=== PATIENT | female | born 1960 | race Caucasian/White ===

== ENCOUNTER 2019-10-18 13:49 | Outpatient (CLI) | payer OTHER, SELFPAY ==
--- NOTE | 2019-10-18 | XR_ITS ---
WS: [id number] LEFT FOREARM 2 VIEWS HISTORY: PAIN AND SWELLING OF THE LEFT FOREARM COMPARISON: None available. No fracture or dislocation. No foreign body or joint effusion. XR/XR forearm LT 2V [id number] IMPRESSION: Normal LEFT forearm.
== END 2019-10-18 13:50 | disposition home or self-care (01) ==
LOC: RADOUTREAD 13:59
PROVIDERS: Visit Provider Nurse Practitioner Family
DX: M79.632 Pain in left forearm (principal); M79.89 Other specified soft tissue disorders

== ENCOUNTER 2020-09-03 09:04 | Outpatient (CLI) | payer OTHER, SELFPAY ==
--- NOTE | 2020-09-03 09:53 | CT_ITS ---
WS: [id number] CT scan of the abdomen with IV contrast. Additional two-dimensional coronal and sagittal reconstruct ion was performed. 09/03/2020 Clinical Data: ABDOMINAL PAIN, EPIGASTRIC Comparison: None. DLP: 802.[address] scans at [facility] use at least one of these dose optimization techniques: automat ed exposure control; mA and/or kV adjustment per patient size (includes targeted exams where dose is matched to clinical indication); or iterative reconstruction. Findings: The lower lungs show no nodules, masses or effusions. There is a large hiatal hernia. There is an enh ancing lesion in the right lobe of the liver measuring 2.5 cm which has the appearance of an hemangio ma. There is fatty infiltration of the liver. The gallbladder, spleen, adrenal glands and pancreas ar e normal. The kidneys show equal bilateral contrast excretion with small cortical cysts bilaterally. No renal m asses or hydronephrosis are seen. The abdominal aorta is normal in size. No appendicitis is seen. Oral contrast is in the stomach, small bowel and colon and there is no bola l dilatation. No abscess, adenopathy, ascites, mass, obstruction or free air is seen. The lumbar vertebral bodies show no abnormalities. CT/CT abdomen w con* [id number] Impression: 1. Large hiatal hernia. 2. Enhancing lesion in the midportion of the right lobe of the liver which is p robably an hemangioma. 3. Fatty infiltration of liver and small cortical renal cysts. 4. Negative for acute intra-abdominal abnormalities.
[2020-09-03] MEDS: iohexol 300 mg/mL 50 mL Btl PO (09:54)
[2020-09-03 10:42] LABS: Blood Urea Nitrogen 14 mg/dL (8-23); Glomerular Filtration Rate 85.1 mL/min (90-130)
[2020-09-03] MEDS: iohexol 300 mg/mL 100 mL Btl IV (10:50)
== END 2020-09-03 09:05 | disposition home or self-care (01) ==
LOC: RADWPI 09:11
PROVIDERS: PCP Nurse Practitioner Family; Visit Provider Nurse Practitioner Family
DX: K44.9 Diaphragmatic hernia without obstruction or gangrene (principal); K76.9 Liver disease, unspecified; K76.0 Fatty (change of) liver, not elsewhere classified; N28.1 Cyst of kidney, acquired; R10.13 Epigastric pain
CPT/HCPCS: 74160; 82565; 84520; Q9967

== ENCOUNTER 2021-01-14 11:38 | Outpatient (CLI) | payer OTHER, SELFPAY ==
--- NOTE | 2021-01-14 11:56 | XR_ITS ---
WS: [id number] PELVIS AND RIGHT HIP HISTORY: R HIP PAIN COMPARISON: None available. Right hip: No acute fracture or dislocation. Moderate narrowing of the hip joint with very mild aceta bular osteophytic ridging. No cortical destruction. Mild similar joint space narrowing on the LEFT. Mild facet joint arthritis at L5-S1. XR/XR hip RT 2-3V wo/w pel* [id number] IMPRESSION: 1. Moderate bilateral hip joint osteoarthritis. 2. No fractures.
== END 2021-01-14 11:39 | disposition home or self-care (01) ==
LOC: RAD 11:45
PROVIDERS: PCP Nurse Practitioner Family; Visit Provider Nurse Practitioner Family
DX: M41.9 Scoliosis, unspecified (principal); M16.0 Bilateral primary osteoarthritis of hip
CPT/HCPCS: 73502

== ENCOUNTER → 2022-10-04 10:38 | Outpatient (BNVA) | payer OTHER, SELFPAY | PROVIDERS: PCP Clinical Nurse Specialist Adult Health; Visit Provider Clinical Nurse Specialist Adult Health | DX: Z00.01 Encounter for general adult medical examination with abnormal findings (principal); Z12.4 Encounter for screening for malignant neoplasm of cervix; N39.0 Urinary tract infection, site not specified | CPT/HCPCS: 81000; 87077; 87086; 87184; 88175 ==

== ENCOUNTER → 2022-10-24 09:14 | Outpatient (BNVA) | payer OTHER, SELFPAY | PROVIDERS: PCP Clinical Nurse Specialist Adult Health; Visit Provider Clinical Nurse Specialist Adult Health | DX: R10.31 Right lower quadrant pain (principal) | CPT/HCPCS: 81000; 87086 ==

== ENCOUNTER → 2022-11-03 09:49 | Outpatient (BNVA) | payer OTHER, SELFPAY | PROVIDERS: PCP Clinical Nurse Specialist Adult Health; Visit Provider Clinical Nurse Specialist Adult Health | DX: N76.0 Acute vaginitis (principal) | CPT/HCPCS: 87481; 87512; 87799 ==

== ENCOUNTER 2022-11-08 11:07 | Outpatient (CLI) | payer OTHER, SELFPAY | END 2022-11-08 11:08 | disposition home or self-care (01) | LOC: LAB 11:07 | PROVIDERS: PCP Clinical Nurse Specialist Adult Health; Visit Provider Clinical Nurse Specialist Adult Health | DX: N76.0 Acute vaginitis (principal) | CPT/HCPCS: 87210 ==

== ENCOUNTER 2022-11-21 13:28 | Outpatient (CLI) | payer OTHER, SELFPAY ==
--- NOTE | 2022-11-21 13:55 | CT_ITS ---
WS: [id number] CT ABDOMEN PELVIS TECHNIQUE: Noncontrast CT of the abdomen and pelvis with coronal and sagittal reformatted images. CLINICAL INFORMATION: abdominal pain, RLQ and right flank COMPARISON: CT September 03, 2020 DLP: 700.[address] scans at [facility] use at least one of these dose optimization techniques: automated e xposure control; mA and/or kV adjustment per patient size (includes targeted exams where dose is matc hed to clinical indication); or iterative reconstruction. FINDINGS: Large esophageal hiatal hernia with intrathoracic stomach unchanged. Lung bases are well aerated. Non contrast liver and spleen are normal. Noncontrast pancreas is normal. Noncontrast gallbladder is norm al. Normal caliber abdominal aorta. Normal sigmoid colon. No evidence of high-grade small or large bowel obstruction. Constipation RIGHT colon and cecum. Moderate constipation transverse colon. Low-lying cecum in the RIGHT lower quadrant. Adrenal glands are normal. Bilateral renal cortical atrophy. Small LEFT renal angiomyolipoma. No hydronephrosis in either kidney. No obstructing renal or ureteral calculi. Pelvic phleboliths. Sli ght grade 1 anterolisthesis L4 on L5. Polypoid lesion dorsal uterus likely small fibroid measuring [address]/CT abdomen pelvis wo con [id number] IMPRESSION: 1. No hydronephrosis in either kidney. No obstructing renal or urethral calcul i. 2. Mild constipation RIGHT colon and transverse colon. Low-lying cecum in the pelvis with indentation on the bladder. 3. Small dorsal projecting uterine nodule likely fibroid measuring 18 mm. This can be further evaluated with pelvic ultrasound. 4. Large esophageal hiatal hernia with partial intrathoracic stomach. 5. Tiny fat-containing umbilical hernia. 6. No other acute findings.
== END 2022-11-21 13:29 | disposition home or self-care (01) ==
PROVIDERS: PCP Clinical Nurse Specialist Adult Health; Visit Provider Clinical Nurse Specialist Adult Health
DX: K59.00 Constipation, unspecified (principal); K42.9 Umbilical hernia without obstruction or gangrene; K44.9 Diaphragmatic hernia without obstruction or gangrene
CPT/HCPCS: 74176

== ENCOUNTER → 2023-01-16 08:34 | Outpatient (BNVA) | payer OTHER, SELFPAY | PROVIDERS: PCP Clinical Nurse Specialist Adult Health; Visit Provider Clinical Nurse Specialist Adult Health | DX: E03.9 Hypothyroidism, unspecified (principal) | CPT/HCPCS: 84439; 84443; 84480 ==

== ENCOUNTER 2023-03-16 12:21 | Outpatient (CLI) | payer OTHER, SELFPAY ==
--- NOTE | 2023-03-16 12:45 | US_ITS ---
WS: [id number] US pelv w/transvag [id number] HISTORY: CT showed possible uterine fibroid COMPARISON: CT pelvis 11/21/2022 Uterus: 5.0 cm x 4.4 cm x 2.8 cm. Very limited and difficult evaluation of the uterus and pelvic structures. No definite fibroids ident ified. This is a very limited evaluation of the pelvic structures. Endometrium: 0.3 cm. Limited, incompletely visualized. Neither ovary is identified. No free fluid in the cul-de-sac. US/US pelv w/transvag [id number] IMPRESSION: Extremely difficult and limited evaluation of the pelvic structures. The uterus and adnexa are not well visualized. Cannot confirm uterine fibroid.
== END 2023-03-16 12:22 | disposition home or self-care (01) ==
LOC: RAD 12:23
PROVIDERS: PCP Clinical Nurse Specialist Adult Health; Visit Provider Clinical Nurse Specialist Adult Health
DX: D25.9 Leiomyoma of uterus, unspecified (principal)
CPT/HCPCS: 76830; 76856

== ENCOUNTER → 2024-01-15 12:56 | Outpatient (BNVA) | payer OTHER, SELFPAY | PROVIDERS: PCP Clinical Nurse Specialist Adult Health; Visit Provider Family Medicine | DX: E55.9 Vitamin D deficiency, unspecified (principal); E03.9 Hypothyroidism, unspecified; E04.2 Nontoxic multinodular goiter; K21.9 Gastro-esophageal reflux disease without esophagitis; Z00.01 Encounter for general adult medical examination with abnormal findings | CPT/HCPCS: 80053; 82607; 82652; 83036; 84439; 84443; 84480; 85025 ==

== ENCOUNTER 2024-02-15 11:56 | Emergency (ER) | payer MEDICARE, SELFPAY ==
--- NOTE | 2024-02-15 12:32 | XR_ITS ---
WS: [id number] Portable AP upright chest, 02/15/2024 Clinical Data: Chest pain Comparison: None. Findings: No nodules, masses or effusions are seen. The heart is normal. The pulmonary vascularity is not increased. No pneumonia or pneumothorax is seen. There is a hiatal hernia behind the heart. The aortic arch and descending thoracic aorta show tortuosity. There are monitor leads on the chest wall. There is a dextroscoliosis of the thoracic spine. XR/XR chest 1V portable [id number] Impression: Atherosclerosis.
--- NOTE | 2024-02-15 12:33 | ECG_ITS ---
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 Measurements Intervals [place] Rate: 67 P: 68 FL: 150 QRS: 70 QRSD: 101 T: 58 QT: 404 QTc: 427 Interpretive Statements SINUS RHYTHM No previous ECG available for comparison Electronically Signed On 02-16-2024 0:05:01 CDT by oPlo York M.D. [id number]
--- NOTE | 2024-02-15 12:34 | W.ED.CHESTPA ---
HPI - Chest Pain General: Chief Complaint: Chest Pain Stated Complaint: left shoulder/arm pain, chest pain Time Seen by Provider: 02/15/24 12:28 History of Present Illness: 63-year-old female with no significant past medical history presents to the emergency room with left chest arm neck and shoulder pain. He says starting yesterday she felt very fatigued. She had soreness in her elbow and shoulder. Today it is gone into her shoulder blades and up into her neck and deltoid area. She was out planting a couple plants and felt twinges in her chest. Had some tightness. She says all this concerned her so she came to the emergency room to rule out anything serious. No cough. No fevers. Review of Systems Narrative: Constitutional symptoms: Negative except as documented in HPI. Skin symptoms: Negative except as documented in HPI. Eye symptoms: Negative except as documented in HPI. ENMT symptoms: Negative except as documented in HPI. Respiratory symptoms: Negative except as documented in HPI. Cardiovascular symptoms: Negative except as documented in HPI. Gastrointestinal symptoms: Negative except as documented in HPI. Genitourinary symptoms: Negative except as documented in HPI. Musculoskeletal symptoms: Negative except as documented in HPI. Neurologic symptoms: Negative except as documented in HPI. Psychiatric symptoms: Negative except as documented in HPI. Endocrine symptoms: Negative except as documented in HPI. 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 Skin: Warm, dry. Head: Normocephalic, atraumatic. Neck: Supple, trachea midline. Eye: Extraocular movements are intact. Ears, nose, mouth and throat: Tacky oral mucosa Cardiovascular: Regular, Normal peripheral perfusion. Respiratory: Lungs are clear to auscultation, respirations are non-labored, breath sounds are equal, Symmetrical chest wall expansion. Gastrointestinal: Soft, Nontender, Non distended, Normal bowel sounds. Musculoskeletal: Normal ROM, no deformity. Neurological: Alert and oriented, No focal neurological deficit observed. Psychiatric: Cooperative, appropriate mood & affect. Course Vital Signs: Vital signs: Vital Signs Pulse Rate 73 02/15/24 13:03 Respiratory Rate 17 02/15/24 13:03 Blood Pressure 143/77 02/15/24 13:03 Pulse Oximetry 95 02/15/24 13:03 Oxygen Delivery Me thod Room Air 02/15/24 13:03 MDM - Chest Pain Medical Decision Making Differential diagnosis for patient with chest pain includes but is not limited to and based on the above HPI, review of systems and physical exam: Pneumonia. unstable angina. angina. Acute coronary syndrome / CT. Pulmonary embolism. Costochondritis / musculoskeletal. Pleurisy. Pericarditis. Esophageal spasm. Pancreatis. Cholecystitis. Workup: Lab work, chest X-ray and EKG ordered to evaluate, rule in and rule out above pathologies. Chest x-ray: No acute process. No infiltrate. No pneumothorax. No cardiomegaly. This was reviewed and interpreted by myself the ER physician. EKG: Time 1202 rate 67 normal sinus rhythm, No ST-T changes, no ectopy, normal CO & QRS intervals, This was reviewed and interpreted by myself the ER physician at 1205 Lab Review: Laboratory results were reviewed and interpreted by myself the emergency room physician. White count is 3.7. BUN and creatinine are 14 and 0.9. Sugar is 89. CRP is normal at 3. proBNP is negative. Urinalysis positive for urinary tract infection 2+ leukocyte Estrace. Greater than 45 whites. I reviewed the patient's medical record. Reexamination: Patient remained stable. No increased work of breathing. No altered mental status. No focal motor deficits. We discussed findings. Assessment and plan: Urinary tract infection Dehydration Noncardiac chest pain -IV Rocephin, Toradol and a normal saline bolus in the emergency room - Discharged home - Discussed findings and plan with patient. Answered any questions. - All laboratory values were reviewed and interpreted personally by myself, the ER physician - All imaging was reviewed and interpreted personally by myself, the ER physician. - Evaluation and treatment of this problem were appropriate in the emergency setting Lab Data 02/15/24 12:50 02/15/24 12:50 Radiology Impressions Chest X-Ray 02/15/24 12:32 Impression: Atherosclerosis. Laboratory Results WBC 3.75 10^3/uL (3.29-11.43) 02/15/24 12:50 RBC 4.35 10^6/uL (3.85-5.65) 02/15/24 12:50 Hgb 12.70 g/dL (11.27-16.99) 02/15/24 12:50 Hct 39.9 % (36-47) 02/15/24 12:50 MCV 91.7 fl (85-98) 02/15/24 12:50 MCH 29.2 pg (27-33) 02/15/24 12:50 MCHC 31.8 g/dL (30-55) 02/15/24 12:50 RDW 14.6 % (12.1-15.1) 02/15/24 12:50 Plt Count 192 10^3/cmm (157-399) 02/15/24 12:50 MPV 9.5 fL (7.4-10.4) 02/15/24 12:50 Neut % (Auto) 55.9 % 02/15/24 12:50 Lymph % (Auto) 35.5 % 02/15/24 12:50 Young % (Auto) 7.5 % 02/15/24 12:50 Eos % (Auto) 0.3 % 02/15/24 12:50 Baso % (Auto) 0.3 % 02/15/24 12:50 Neut # (Auto) 2.10 10^3/uL (1.8-7.7) 02/15/24 12:50 Lymph # (Auto) 1.3 10^3/uL (0.8-4.8) 02/15/24 12:50 Young # (Auto) 0.3 10^3/uL (0.2-0.9) 02/15/24 12:50 Eos # (Auto) 0.0 10^3/uL (0.0-0.8) 02/15/24 12:50 Baso # (Auto) 0.0 10^3/uL (0.0-0.1) 02/15/24 12:50 Nucleated RBC % (auto) 0 % 02/15/24 12:50 Nucleated RBCs # 0.0 /100WBC 02/15/24 12:50 Sodium 138 mmol/L (136-145) 02/15/24 12:50 Potassium 4.6 mmol/L (3.5-5.1) 02/15/24 12:50 Chloride 106 mmol/L (98-107) 02/15/24 12:50 Carbon Dioxide 24 mmol/L (22-29) 02/15/24 12:50 Anion Gap 12.6 (5-19) 02/15/24 12:50 BUN 14 mg/dL (8-23) 02/15/24 12:50 Creatinine 0.9 mg/dL (0.5-0.9) 02/15/24 12:50 GFR Calculation 62.8 mL/min (90-130) L 02/15/24 12:50 Glucose 89 mg/dL (65-115) 02/15/24 12:50 Calculated Osmolality 286 mOsm/kg (285-295) 02/15/24 12:50 Calcium 9.0 mg/dL (8.5-10.5) 02/15/24 12:50 Total Bilirubin 0.3 mg/dL (0.15-1.2) 02/15/24 12:50 AST 17 U/L (0-32) 02/15/24 12:50 ALT 15 U/L (0-33) 02/15/24 12:50 Alkaline Phosphatase 79 U/L (35-105) 02/15/24 12:50 Troponin T Baseline < 6 ng/L (0-10) 02/15/24 12:50 C-Reactive Protein 3.0 mg/L (0.0-4.9) 02/15/24 12:50 NT-Pro-B Natriuret Pep < 36 pg/mL (0-125) 02/15/24 12:50 Total Protein 6.8 g/dL (6.6-8.7) 02/15/24 12:50 Albumin 4.2 g/dL (3.5-5.2) 02/15/24 12:50 Globulin 2.6 g/dL (1.3-4.6) 02/15/24 12:50 Urine Color Dark yellow (Yellow) 02/15/24 13:12 Urine Appearance Cloudy (CLEAR) A 02/15/24 13:12 Urine pH 5 (5-7) 02/15/24 13:12 Ur Specific [place] 1.030 (1.005-1.030) 02/15/24 13:12 Urine Protein Neg (Negative) 02/15/24 13:12 Urine Glucose (UA) Norm (Normal) 02/15/24 13:12 Urine Ketones Negative (Negative) 02/15/24 13:12 Urine Blood 2+ (Negative) H 02/15/24 13:12 Urine Nitrate Negative (Negative) 02/15/24 13:12 Urine Bilirubin Neg (Negative) 02/15/24 13:12 Urine Urobilinogen Norm mg/dL (Negative) 02/15/24 13:12 Ur Leukocyte Esterase 2+ (Negative) H 02/15/24 13:12 Urine RBC 0-4 /hpf (0-2) H 02/15/24 13:12 Urine WBC 40-55 /hpf (0-5) H 02/15/24 13:12 Ur Squamous Epith Cells 5-10 /hpf (0-5) H 02/15/24 13:12 Ur Transition Epith Cell 0-4 /hpf 02/15/24 13:12 Amorphous Sediment Not Reportable 02/15/24 13:12 Urine Bacteria Trace /hpf (NONE) 02/15/24 13:12 Urine Mucus Trace /hpf 02/15/24 13:12 All radiology interpretation(s) finalized by discharge Discharge Plan Discharge Patient Disposition: Home Clinical Impression: Urinary tract infection Condition: Stable Prescriptions: New diclofenac sodium 50 mg tablet,delayed release (DR/EC) 50 mg PO Q12H Qty: 20 0RF cefdinir 300 mg capsule 300 mg PO BID 7 Days Qty: 14 0RF No Action thyroid (pork) [[place] Thyroid] 90 mg tablet 90 mg PO DAILY Qty: 90 3RF Aspir-81 81 mg Tablet,Delayed Release (Dr/Ec) 81 mg PO DAILY PRN (Reason: Chest Pain) Ozempic 0.25 mg or 0.5 mg (2 mg/3 mL) pen injector 0.25 mg SUBCUT Q7D Rx Instructions: ON MONDAY Discharge Orders: Discharge ED (Routine); Ordered 02/15/24 Ordered By: Julieta Hong Referrals: Luis Mendez, [Primary Care Provider] - 4-7 days Discharge Diet: Usual diet Discharge Activity: Increase activity as tolerated Patient Instructions: Urinary Tract Infection in Women (ED) Activity Restrictions/Additional Instructions: Thank you for choosing [facility] for your healthcare needs today. Please realize this is an emergency room and that we are providing you with a medical screening exam and this may not be complete and all inclusive of all the testing and or work up that you may need to determine your ailment or severity of your illness. You have been screened and evaluated and felt safe for discharge. Health conditions do change or evolve sometimes and as such it is important that you follow up with your Primary Doctor to be re checked, 3-5 days is a general good time frame for follow up. You are always welcome to return to the ED for re assessment if your symptoms are worsening or you have new concerns Coding Level of Care Code ED Public Administration Professor for Zaida Becker
[2024-02-15 12:45] VITALS: BP 138/93; PULSE 70; RESP 18; O2SAT 96
[2024-02-15 12:59] LABS: Basophils % 0.3 %; Eosinophils % 0.3 %; Hematocrit 39.9 % (36-47); Lymphocytes # 1.3 10^3/uL (0.8-4.8); Lymphocytes % 35.5 %; Mean Corpuscular HGB Conc 31.8 g/dL (30-55); Mean Corpuscular Hemoglobin 29.2 pg (27-33); Mean Corpuscular Volume 91.7 fl (85-98); Mean Platelet Volume 9.5 fL (7.4-10.4); Monocytes # 0.3 10^3/uL (0.2-0.9); Monocytes % 7.5 %; Neutrophils % 55.9 %; Nucleated Red Blood Cells % 0 %; Platelet Count 192 10^3/cmm (157-399); Red Blood Count 4.35 10^6/uL (3.85-5.65); Red Cell Distribution Width 14.6 % (12.1-15.1); White Blood Count 3.75 10^3/uL (3.29-11.43)
[2024-02-15 13:03] VITALS: BP 143/77; PULSE 73; RESP 17; O2SAT 95
[2024-02-15 13:19] LABS: Troponin(5th) Baseline < 6 ng/L (0-10)
[2024-02-15 13:27] LABS: Alanine Aminotransferase 15 U/L (0-33); Albumin Level 4.2 g/dL (3.5-5.2); Alkaline Phosphatase 79 U/L (35-105); Anion Gap 12.6 (5-19); Aspartate Amino Transferase 17 U/L (0-32); Blood Urea Nitrogen 14 mg/dL (8-23); Carbon Dioxide 24 mmol/L (22-29); Chloride 106 mmol/L (98-107); Creatinine Clr Calc Pharmacy 71.1682; Globulin 2.6 g/dL (1.3-4.6); Glomerular Filtration Rate 62.8 mL/min (90-130); Glucose 89 mg/dL (65-115); NT Pro B Type Natriuretic Pept < 36 pg/mL (0-125); Osmolality Calculated 286 mOsm/kg (285-295); Potassium 4.6 mmol/L (3.5-5.1); Sodium 138 mmol/L (136-145); Total Bilirubin 0.3 mg/dL (0.15-1.2); Total Protein 6.8 g/dL (6.6-8.7)
[2024-02-15 13:27] LABS: Bilirubin Urine Neg (Negative); Blood Urine 2+ (Negative); Glucose Urine UA Norm (Normal); Ketones Urine Negative (Negative); Leukocyte Esterase Urine 2+ (Negative); Nitrate Urine Negative (Negative); Protein Urine Neg (Negative); Urine Appearance Cloudy (CLEAR); Urine Color Dark Yellow (Yellow); Urobilinogen Urine Norm (Negative); pH Urine 5 (5-7)
[2024-02-15 13:30] LABS: Add Urine Culture? Yes; Bacteria Urine TRACE /hpf; Mucus Urine TRACE /hpf; RBC Urine 0-4 /hpf (0-2); Transitional Epi Cells Urine 0-4 /hpf; WBC Urine 40-55 /hpf (0-5)
[2024-02-15] MEDS: ketorolac 30 mg/mL INJ IVP (13:59)
[2024-02-15] MEDS: sodium chloride 0.9% 1,000 ML 999 ML IV (14:01)
[2024-02-15] MEDS: cefTRIAXone 1,000 MG in sodium chloride 0.9% (plus) 50 ML 100 MG IV (14:06)
[2024-02-15 14:11] VITALS: PULSE 57; RESP 16; O2SAT 98
[2024-02-15 14:16] LABS: Chol HDL Ratio 3.28 mg/dL (0.0-4.40); Cholesterol 200 mg/dL (0-200); HDL Cholesterol 61 mg/dL (60-100); LDL Cholesterol Calculated 119 mg/dL (50-129); Triglycerides 99 mg/dL (0-150); VLDL Cholestrol Calculation 20 mg/dL (0-30)
[2024-02-15 14:30] VITALS: BP 150/94; PULSE 62; RESP 16; O2SAT 98
== END 2024-02-15 15:08 | disposition home or self-care (01) ==
PROVIDERS: Emergency Provider Emergency Medicine; PCP Family Medicine
DX: R07.89 Other chest pain (principal); N39.0 Urinary tract infection, site not specified; E86.0 Dehydration; E03.9 Hypothyroidism, unspecified; Z79.890 Hormone replacement therapy
CPT/HCPCS: 36415; 71045; 80053; 80061; 81001; 83880; 84484; 85025; 86140; 87086; 93005; 96365; 96375; 99285; J0696; J1885; J7030

== ENCOUNTER 2024-02-23 11:38 | Outpatient (CLI) | payer MEDICARE, SELFPAY ==
[2024-02-23 12:09] LABS: Add Urine Microscopic? YES; Bacteria Urine TRACE /hpf; Bilirubin Urine Neg (Negative); Blood Urine 2+ (Negative); Glucose Urine UA Norm (Normal); Ketones Urine Negative (Negative); Leukocyte Esterase Urine Trace (Negative); Nitrate Urine Negative (Negative); Protein Urine Neg (Negative); Squamous Epithelial Cell Urine 0-4 /hpf (0-5); Urine Appearance Clear (CLEAR); Urine Color Yellow (Yellow); Urobilinogen Urine Norm (Negative); WBC Urine 0-4 /hpf (0-5); pH Urine 5 (5-7)
== END 2024-02-23 11:39 | disposition home or self-care (01) ==
LOC: LAB 11:39
PROVIDERS: PCP Family Medicine; Visit Provider Family Medicine
DX: N39.0 Urinary tract infection, site not specified (principal)
CPT/HCPCS: 81001; 87086

== ENCOUNTER → 2024-02-27 13:26 | Outpatient (BNVA) | payer MEDICARE, SELFPAY | PROVIDERS: PCP Family Medicine; Visit Provider Family Medicine | DX: R31.29 Other microscopic hematuria (principal) | CPT/HCPCS: 74018 ==

== ENCOUNTER 2024-04-17 11:55 | Outpatient (CLI) | payer MEDICARE, SELFPAY ==
[2024-04-17 13:04] LABS: Add Urine Microscopic? YES; Bilirubin Urine Neg (Negative); Blood Urine 2+ (Negative); Glucose Urine UA Norm (Normal); Ketones Urine Negative (Negative); Leukocyte Esterase Urine Negative (Negative); Nitrate Urine Negative (Negative); Protein Urine Neg (Negative); Urine Appearance Clear (CLEAR); Urine Color Yellow (Yellow); Urobilinogen Urine Norm (Negative); pH Urine 5 (5-7)
[2024-04-17 13:05] LABS: Bacteria Urine TRACE /hpf; Squamous Epithelial Cell Urine 0-4 /hpf (0-5)
[2024-04-17 13:06] LABS: Add Urine Culture? No
== END 2024-04-17 11:56 | disposition home or self-care (01) ==
LOC: LAB 11:57
PROVIDERS: PCP Family Medicine; Visit Provider Family Medicine
DX: R31.29 Other microscopic hematuria (principal)
CPT/HCPCS: 81001; 87086

== ENCOUNTER 2024-05-30 13:02 | Outpatient (CLI) | payer MEDICARE, SELFPAY ==
[2024-05-30 13:45] LABS: Bilirubin Urine Negative (Negative); Blood Urine Negative (Negative); Glucose Urine UA Negative (Normal); Ketones Urine 1+ (Negative); Leukocyte Esterase Urine 1+ (Negative); Nitrate Urine Negative (Negative); Protein Urine Negative (Negative); Specific Gravity, Urine 1.029 (1.005-1.030); Urine Appearance Cloudy (CLEAR); Urine Color Yellow (Yellow)
[2024-05-30 13:49] LABS: Bacteria Urine None Seen /hpf; Hyaline Casts Urine 1.21 /lpf; RBC Urine 0-2 /hpf (0-2); Squamous Epithelial Cell Urine 0-5 /hpf (0-5)
== END 2024-05-30 13:03 | disposition home or self-care (01) ==
LOC: LAB 13:04
PROVIDERS: PCP Family Medicine; Visit Provider Family Medicine
DX: R31.29 Other microscopic hematuria (principal)
CPT/HCPCS: 81001

== ENCOUNTER 2024-12-11 12:20 | Outpatient (CLI) | payer MEDICARE, SELFPAY ==
[2024-12-11 12:45] LABS: Basophils % 0.4 %; Eosinophils % 0.4 %; Hematocrit 40.6 % (36-47); Lymphocytes # 1.9 10^3/uL (0.8-4.8); Lymphocytes % 33.1 %; Mean Corpuscular Hemoglobin 29.2 pg (27-33); Monocytes # 0.4 10^3/uL (0.2-0.9); Monocytes % 6.9 %; Neutrophils # 3.36 10^3/uL (1.8-7.7); Nucleated Red Blood Cells % 0 %; Platelet Count 195 10^3/cmm (157-399); Red Blood Count 4.32 10^6/uL (3.85-5.65); Red Cell Distribution Width 13.4 % (12.1-15.1); White Blood Count 5.68 10^3/uL (3.29-11.43)
[2024-12-11 12:50] LABS: Bilirubin Urine Negative (Negative); Blood Urine Trace (Negative); Glucose Urine UA Negative (Normal); Ketones Urine 1+ (Negative); Leukocyte Esterase Urine Negative (Negative); Nitrate Urine Negative (Negative); Protein Urine Negative (Negative); Specific Gravity, Urine 1.006 (1.005-1.030); Urine Appearance Clear (CLEAR); Urine Color Yellow (Yellow); Urobilinogen Urine 0.2 mg/dL (Negative)
[2024-12-11 12:55] LABS: Add Urine Microscopic? YES; Bacteria Urine None Seen /hpf; Hyaline Casts Urine 0-4 /lpf; RBC Urine 0-2 /hpf (0-2); Squamous Epithelial Cell Urine 0-5 /hpf (0-5); WBC Urine 0-5 /hpf (0-5)
[2024-12-11 13:04] LABS: Add Urine Culture? No
[2024-12-11 13:16] LABS: Alanine Aminotransferase 13 U/L (0-33); Albumin Level 4.3 g/dL (3.5-5.2); Alkaline Phosphatase 98 U/L (35-105); Blood Urea Nitrogen 18 mg/dL (8-23); C Reactive Protein 6.7 mg/L (0.0-4.9); Calcium 9.4 mg/dL (8.5-10.5); Carbon Dioxide 18 mmol/L (22-29); Chloride 102 mmol/L (98-107); Chol HDL Ratio 3.53 mg/dL (0.0-4.40); Cholesterol 212 mg/dL (0-200); Free T4 Free Thyroxine 0.94 ng/dL (0.82-1.77); Globulin 3.1 g/dL (1.3-4.6); Glomerular Filtration Rate 83.7 mL/min (90-130); Glucose 79 mg/dL (65-115); HDL Cholesterol 60 mg/dL (60-100); LDL Cholesterol Calculated 132 mg/dL (50-129); Osmolality Calculated 281 mOsm/kg (285-295); Sodium 135 mmol/L (136-145); T3 Free 1.8 PG/ML (2.0-4.4); Thyroid Stimulating Hormone 2.11 uIU/mL (0.27-4.20); Total Bilirubin 0.4 mg/dL (0.15-1.2); Total Protein 7.4 g/dL (6.6-8.7); Triglycerides 98 mg/dL (0-150); VLDL Cholestrol Calculation 20 mg/dL (0-30)
[2024-12-11 13:54] LABS: Anion Gap 19.6 (5-19); Aspartate Amino Transferase 21 U/L (0-32); Potassium 4.6 mmol/L (3.5-5.1)
[2024-12-11 14:57] LABS: Vitamin B12 > 2000 pg/mL (232-1245)
[2024-12-12 11:22] LABS: 25 Hydroxy Vitamin D 48 ng/mL (30-100)
== END 2024-12-11 12:21 | disposition home or self-care (01) ==
LOC: LAB 12:21
PROVIDERS: PCP Family Medicine; Visit Provider Family Medicine
DX: E03.9 Hypothyroidism, unspecified (principal); E55.9 Vitamin D deficiency, unspecified; F32.9 Major depressive disorder, single episode, unspecified; G89.29 Other chronic pain; R31.29 Other microscopic hematuria
CPT/HCPCS: 36415; 80053; 80061; 81001; 82306; 82607; 82652; 84439; 84443; 84481; 85025; 86140

== ENCOUNTER 2025-02-06 10:08 | Outpatient (RCR) | payer MEDICARE, SELFPAY | END 2025-03-01 23:59 | disposition home or self-care (01) | LOC: SOT 10:08 | PROVIDERS: Visit Provider Orthopaedic Surgery | DX: S62.102D Fracture of unspecified carpal bone, left wrist, subsequent encounter for fracture with routine healing (principal); X58.XXXD Exposure to other specified factors, subsequent encounter | CPT/HCPCS: 97022; 97110; 97140; 97166; 97530 ==

== ENCOUNTER 2025-03-02 05:00 | Outpatient (RCR) | payer MEDICARE, SELFPAY | END 2025-03-31 23:59 | disposition home or self-care (01) | LOC: SOT 05:00 | PROVIDERS: Visit Provider Orthopaedic Surgery | DX: S62.102D Fracture of unspecified carpal bone, left wrist, subsequent encounter for fracture with routine healing (principal); X58.XXXD Exposure to other specified factors, subsequent encounter | CPT/HCPCS: 97022; 97110; 97140 ==

== ENCOUNTER 2025-03-18 12:49 | Emergency (ER) | payer MEDICARE, SELFPAY ==
--- NOTE | 2025-03-18 12:51 | XRR_ITS ---
PROCEDURE INFORMATION: Exam: XR Chest Exam date and time: 03/18/2025 1:05 PM Age: 64 years old Clinical indication: Pain; Chest pressure; Additional info: Cp TECHNIQUE: Imaging protocol: Radiologic exam of the chest. Views: 1 view. COMPARISON: CR XR chest 1V portable [id number] 02/15/2024 1:02 PM FINDINGS: Lungs: No acute pulmonary pathology. Pleural spaces: No pleural effusion. Heart/Mediastinum: Yiovhssg-oc-ttrgd hiatal hernia again seen. Cardiac silhouette within normal limits. Bones/joints: Thoracolumbar spine curvature with degenerative change again seen. XR/XR chest 1V portable [id number] IMPRESSION: No acute pathology or significant interval change. Whhisghm-wo-eizqz hiatal hernia again noted.
--- NOTE | 2025-03-18 12:55 | ECG_ITS ---
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 Measurements Intervals [place] Rate: 63 P: 194 [place]: 106 QRS: 178 QRSD: 90 T: 149 QT: 416 QTc: 426 Interpretive Statements ECTOPIC ATRIAL RHYTHM WITH SHORT WA INTERVAL POSSIBLE RIGHT VENTRICULAR HYPERTROPHY [SOME/ALL OF: PROMINENT R IN V1, LATE TRANSITION, RAD, MATTIE, SSS] INFERIOR MYOCARDIAL INFARCTION , PROBABLY OLD [40+ ms Q WAVE AND/OR ST/T ABNORMALITY IN II/aVF] Compared to ECG 02/15/2024 12:02:34 Ectopic atrial rhythm now present Short WA interval now present Myocardial infarct finding now present Sinus rhythm no longer present Electronically Signed On 03-20-2025 06:17:54 CDT by Polo York M.D. [id number]
[2025-03-18 12:57] VITALS: BP 129/85; PULSE 64; RESP 16; TEMP 36.3; O2SAT 98
--- NOTE | 2025-03-18 13:50 | ED_ITS ---
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 Denies any fevers states her pain currently is a 2 out of 10 denies any worse improved factors denies any history of heart disease is a non-smoker no history of hypertension or diabetes Associated symptoms: Reports nausea; Deny fever(s) or vomiting Related Data Home Medications ?Medication ?Instructions ?Recorded ?Confirmed thyroid (pork) 90 mg tablet 90 mg PO QAM 03/18/2503/02 ([place] Thyroid) Allergies Allergy/AdvReac Type Severity Reaction Status Date / Time No Known Allergies Allergy Verified 03/18/25 12:01 Review of Systems 2 Const: Denies: fever(s), chills, body aches or change in appetite ENMT: Denies: throat pain or dental pain Card: Reports: chest pain GI: Reports: nausea; Denies: vomiting or diarrhea : Denies: dysuria Musc: Denies: neck pain or back pain Skin/Breast: Denies: rash Neuro: Denies: headache(s) PFSH ED 2 PFSH: Medical History (Updated 03/18/25 @ 17:19 by Zain Yao MD) Shortened NC interval Thyroid nodule Esophageal spasm GERD (gastroesophageal reflux disease) Major depression Hypothyroidism Surgical History No pertinent past surgical history Family History Grandmother Cancer breast cancer age 50 Other CAD (coronary artery disease) Diabetes Social History Smoking and tobacco/nicotine status: unknown if used tobacco/nicotine Alcohol intake: current Alcohol intake frequency: few times a week Substance/Drug Use: never Additional social history: Goes by [employer] 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 Physical Exam 2 Const: COMMON NORMALS: no acute distress, patient oriented x3 and healthy appearing HENMT: COMMON NORMALS: normocephalic and atraumatic HEAD & SCALP: n ormocephalic and atraumatic Neck/C-Spine: COMMON NORMALS: full ROM and supple Chest: COMMONS NORMALS: normal inspection of the chest Resp: COMMON NORMALS: normal respiratory effort, No retractions, No use of accessory muscles and clear to auscultation bilaterally AUSCULTATION: clear to auscultation bilaterally Cardio: COMMON NORMALS: regular rate, regular rhythm and No murmurs present (Cardio) RATE: regular rate RHYTHM: regular rhythm GI: COMMON NORMALS: Normal to inspection, nondistended, normoactive bowel sounds present, Soft to palpation, non-tender and no masses PALPATION: Yes Soft to palpation Extremity: COMMON NORMALS: normal to inspection and full ROM Neuro: COMMON NORMALS: patient oriented x3, moves all extremities and no focal motor deficits Psych: COMMON NORMALS: mental status grossly normal, Normal thought process present and cooperative THOUGHT PROCESS: Normal thought process present Skin: COMMON NORMALS: no rashes or lesions noted and no wounds GENERAL SKIN EXAM: no rashes or lesions noted Course 2 Vital Signs: Vital signs: Vital Signs Temperature 97.4 F L 03/18/25 12:57 Pulse Rate 66 03/18/25 17:00 Respiratory Rate 16 03/18/25 12:57 Blood Pressure 117/80 03/18/25 17:00 Pulse Oximetry 95 03/18/25 17:00 Oxygen Delivery Me thod Room Air 03/18/25 17:00 MDM - Chest Pain Medical Decision Making Patient presents here with chest pain is atypical in nature initial repeat troponins are negative CTA shows no dissection or pulm embolism she feels improved here she stable for discharge she is to follow-up with PCP return if worsening. Medical Records I reviewed the patient's medical records. Lab Data I reviewed the patient's lab results. 03/18/25 13:45 03/18/25 13:45 Radiology Impressions Chest X-Ray 03/18/25 12:51 IMPRESSION: No acute pathology or significant interval change. [id number] hiatal hernia again noted. Chest CTA 03/18/25 14:19 IMPRESSION: 1. No evidence of pulmonary embolism or other acute chest disease. 2. Minor findings noted above including hiatal hernia. COMMENTS: Consistent with the [employer]'s Incidental Findings Committee white paper (J Am Shante Radiol 2018): Any incidental renal lesion less than 1 cm or classified as too small to characterize, or any incidental cystic renal lesion characterized as simple-appearing, is likely benign. No follow-up imaging is recommended for these lesions per consensus recommendations based on imaging criteria. Laboratory Results WBC 4.86 10^3/uL (3.29-11.43) 03/18/25 13:45 RBC 4.06 10^6/uL (3.85-5.65) 03/18/25 13:45 Hgb 11.80 g/dL (11.27-16.99) 03/18/25 13:45 Hct 37.2 % (36-47) 03/18/25 13:45 MCV 91.6 fl (85-98) 03/18/25 13:45 MCH 29.1 pg (27-33) 03/18/25 13:45 MCHC 31.7 g/dL (30-55) 03/18/25 13:45 RDW 15.5 % (12.1-15.1) H 03/18/25 13:45 Plt Count 197 10^3/cmm (157-399) 03/18/25 13:45 MPV 9.7 fL (7.4-10.4) 03/18/25 13:45 Neut % (Auto) 53.5 % 03/18/25 13:45 Lymph % (Auto) 38.3 % 03/18/25 13:45 [place] % (Auto) 7.0 % 03/18/25 13:45 Eos % (Auto) 0.4 % 03/18/25 13:45 Baso % (Auto) 0.6 % 03/18/25 13:45 Neut # (Auto) 2.60 10^3/uL (1.8-7.7) 03/18/25 13:45 Lymph # (Auto) 1.9 10^3/uL (0.8-4.8) 03/18/25 13:45 [place] # (Auto) 0.3 10^3/uL (0.2-0.9) 03/18/25 13:45 Eos # (Auto) 0.0 10^3/uL (0.0-0.8) 03/18/25 13:45 Baso # (Auto) 0.0 10^3/uL (0.0-0.1) 03/18/25 13:45 Nucleated RBC % (auto) 0 % 03/18/25 13:45 Nucleated RBCs # 0.0 /100WBC 03/18/25 13:45 PT 12.40 SECONDS (12.1-14.9) 03/18/25 13:45 INR 0.86 (0.8-1.2) 03/18/25 13:45 D-Dimer 0.98 ug/mLFEU (0-0.59) H 03/18/25 13:45 Sodium 142 mmol/L (136-145) 03/18/25 13:45 Potassium 4.8 mmol/L (3.5-5.1) 03/18/25 13:45 Chloride 106 mmol/L (98-107) 03/18/25 13:45 Carbon Dioxide 24 mmol/L (22-29) 03/18/25 13:45 Anion Gap 16.8 (5-19) 03/18/25 13:45 BUN 12 mg/dL (8-23) 03/18/25 13:45 Creatinine 0.7 mg/dL (0.5-0.9) 03/18/25 13:45 GFR Calculation 83.7 mL/min (90-130) L 03/18/25 13:45 Glucose 91 mg/dL (65-115) 03/18/25 13:45 Calculated Osmolality 293 mOsm/kg (285-295) 03/18/25 13:45 Calcium 9.2 mg/dL (8.5-10.5) 03/18/25 13:45 Total Bilirubin 0.4 mg/dL (0.15-1.2) 03/18/25 13:45 AST 20 U/L (0-32) 03/18/25 13:45 ALT 19 U/L (0-33) 03/18/25 13:45 Alkaline Phosphatase 107 U/L (35-105) H 03/18/25 13:45 Troponin T Baseline < 6 ng/L (0-10) 03/18/25 13:45 Troponin T 120 Minute < 6.0 ng/L (0-10) 03/18/25 16:20 Delta Troponin T 0 ABS# (0-10) 03/18/25 16:20 NT-Pro-B Natriuret Pep 131 pg/mL (0-125) H 03/18/25 13:45 Total Protein 6.7 g/dL (6.6-8.7) 03/18/25 13:45 Albumin 4.4 g/dL (3.5-5.2) 03/18/25 13:45 Globulin 2.3 g/dL (1.3-4.6) 03/18/25 13:45 Lipase 44 U/L (13-60) 03/18/25 13:45 All radiology interpretation(s) finalized by discharge EKG Data EKG 2: I personally reviewed and interpreted this EKG as follows: EKG interpretation date: 03/18/25 EKG interpretation time: 14:44 Interpretation: nsr hr [address] elevation qrs 88 qtc 428 Discharge Plan Discharge Patient Disposition: Home Clinical Impression: Chest pain Condition: Stable Prescriptions: No Action thyroid (pork) [[place] Thyroid] 90 mg tablet 90 mg PO QAM Discharge Orders: Discharge ED (Routine); Ordered 03/18/25 Ordered By: Zain Yao Referrals: Luis Mendez DO [Primary Care Provider, Family Practice] - 4-7 days Discharge Diet: Advance as tolerated Discharge Activity: Resume usual activity Patient Instructions: Chest Pain (ED) Print Language: Cymraes Coding Level of Care Code ED Informatics Coordinator for Zaida Becker
[2025-03-18 13:51] LABS: Basophils % 0.6 %; Eosinophils % 0.4 %; Hematocrit 37.2 % (36-47); Lymphocytes # 1.9 10^3/uL (0.8-4.8); Lymphocytes % 38.3 %; Mean Corpuscular HGB Conc 31.7 g/dL (30-55); Mean Corpuscular Hemoglobin 29.1 pg (27-33); Mean Corpuscular Volume 91.6 fl (85-98); Mean Platelet Volume 9.7 fL (7.4-10.4); Monocytes # 0.3 10^3/uL (0.2-0.9); Neutrophils % 53.5 %; Nucleated Red Blood Cells % 0 %; Platelet Count 197 10^3/cmm (157-399); Red Blood Count 4.06 10^6/uL (3.85-5.65); Red Cell Distribution Width 15.5 % (12.1-15.1); White Blood Count 4.86 10^3/uL (3.29-11.43)
[2025-03-18] MEDS: aspirin 81 mg Chew Tablet 324 MG PO (13:58)
[2025-03-18] MEDS: ondansetron 2 mg/ML SDV 2 mL 4 MG IVP (13:58)
[2025-03-18 14:00] VITALS: BP 109/62; PULSE 66; O2SAT 96
[2025-03-18 14:12] LABS: INR 0.86 (0.8-1.2)
[2025-03-18 14:15] LABS: D Dimer 0.98 ug/mLFEU (0-0.59)
[2025-03-18 14:19] LABS: Troponin(5th) Baseline < 6 ng/L (0-10)
--- NOTE | 2025-03-18 14:19 | CTR_ITS ---
PROCEDURE INFORMATION: Exam: CTA Chest With Contrast Exam date and time: 03/18/2025 2:55 PM Age: 64 years old Clinical indication: Dyspnea; Additional info: SOB TECHNIQUE: Imaging protocol: Computed tomographic angiography of the chest with contrast. Exam focused on the arteries. 3D rendering (Not supervised by radiologist): MIP and/or 3D reconstructed images were created by the technologist. Radiation optimization: All CT scans at this facility use at least one of these dose optimization techniques: automated exposure control; mA and/or kV adjustment per patient size (includes targeted exams where dose is matched to clinical indication); or iterative reconstruction. Contrast material: OMNI 350; Contrast volume: 70 ml; Contrast route: INTRAVENOUS (IV); COMPARISON: CR (CHEST, ) 03/18/2025 1:05 PM RADIATION DOSE METRICS: Total DLP (mGy-cm): 394.15 FINDINGS: Pulmonary arteries: No pulmonary embolism evident. Aorta: No evidence of thoracic aortic aneurysm. Thyroid: No significant thyroid pathology. Lungs: Calcified pulmonary granulomata are present. Areas of mild mosaic attenuation are present in the lungs. Scattered areas of linear and streaky pulmonary opacity most consistent with scar and/or atelectasis. Pleural spaces: No pleural effusion. Heart: No significant pathology. No pericardial effusion. Lymph nodes: No evidence of lymphadenopathy. Diaphragm: Dnapmyfv-an-jabhe hiatal hernia. Liver: Hepatic steatosis. Kidneys: Subcentimeter renal cortical hypodensities, indeterminate by criteria but statistically most likely representing cysts. Bones/joints: Features of both DISH and mild degenerative change noted in the spine. Soft tissues: No significant pathology. CT/CT angio chest PE protcl [id number] IMPRESSION: 1. No evidence of pulmonary embolism or other acute chest disease. 2. Minor findings noted above including hiatal hernia. COMMENTS: Consistent with the [employer]'s Incidental Findings Committee white paper (J Am Shante Radiol 2018): Any incidental renal lesion less than 1 cm or classified as too small to characterize, or any incidental cystic renal lesion characterized as simple-appearing, is likely benign. No follow-up imaging is recommended for these lesions per consensus recommendations based on imaging criteria.
[2025-03-18 14:27] LABS: Alanine Aminotransferase 19 U/L (0-33); Albumin Level 4.4 g/dL (3.5-5.2); Alkaline Phosphatase 107 U/L (35-105); Anion Gap 16.8 (5-19); Aspartate Amino Transferase 20 U/L (0-32); Blood Urea Nitrogen 12 mg/dL (8-23); Calcium 9.2 mg/dL (8.5-10.5); Carbon Dioxide 24 mmol/L (22-29); Chloride 106 mmol/L (98-107); Creatinine Clr Calc Pharmacy 80.5815; Globulin 2.3 g/dL (1.3-4.6); Glomerular Filtration Rate 83.7 mL/min (90-130); Glucose 91 mg/dL (65-115); Lipase 44 U/L (13-60); NT Pro B Type Natriuretic Pept 131 pg/mL (0-125); Osmolality Calculated 293 mOsm/kg (285-295); Potassium 4.8 mmol/L (3.5-5.1); Sodium 142 mmol/L (136-145); Total Bilirubin 0.4 mg/dL (0.15-1.2); Total Protein 6.7 g/dL (6.6-8.7)
--- NOTE | 2025-03-18 14:44 | ECG_ITS ---
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 Measurements Intervals Winn Rate: 65 P: 58 LA: 152 QRS: 66 QRSD: 88 T: 60 QT: 416 QTc: 435 Interpretive Statements SINUS RHYTHM LOW QRS VOLTAGE IN PRECORDIAL LEADS [QRS DEFLECTION < 1.0 mV IN CHEST LEADS] Compared to ECG 03/18/2025 12:55:33 Low QRS voltage now present Ectopic atrial rhythm no longer present Short LA interval no longer present Myocardial infarct finding no longer present Electronically Signed On 03-20-2025 06:30:34 CDT by Polo York M.D. [email or web address]
[2025-03-18] MEDS: iohexol 350 mg/mL 500 mL Btl (per mL) IV (14:57)
[2025-03-18 15:23] VITALS: BP 132/82; PULSE 71; O2SAT 97
[2025-03-18 16:00] VITALS: BP 122/81; PULSE 67; O2SAT 98
[2025-03-18 17:00] VITALS: BP 117/80; PULSE 66; O2SAT 95
[2025-03-18 17:10] LABS: Troponin 5 2HR < 6.0 ng/L (0-10); Troponin 5 2HR Delta 0 ABS# (0-10)
[2025-03-18 17:29] VITALS: BP 132/50; PULSE 61; O2SAT 95
== END 2025-03-18 17:31 | disposition home or self-care (01) ==
PROVIDERS: Emergency Provider Emergency Medicine; PCP Family Medicine
DX: R07.9 Chest pain, unspecified (principal)
CPT/HCPCS: 36415; 71045; 71275; 80053; 83690; 83880; 84484; 85025; 85378; 85610; 93005; 96374; 99285; J2405; J9999

== ENCOUNTER 2025-04-01 05:00 | Outpatient (RCR) | payer MEDICARE, SELFPAY | END 2025-05-01 23:59 | disposition home or self-care (01) | LOC: SOT 05:00 | PROVIDERS: PCP Family Medicine; Visit Provider Orthopaedic Surgery | DX: S62.102D Fracture of unspecified carpal bone, left wrist, subsequent encounter for fracture with routine healing (principal); X58.XXXD Exposure to other specified factors, subsequent encounter | CPT/HCPCS: 97022; 97110 ==

== ENCOUNTER 2025-04-30 10:59 | Outpatient (CLI) | payer MEDICARE, SELFPAY ==
--- NOTE | 2025-04-30 11:15 | USCV_ITS ---
Trinidad Quiros Age: 64 Gender: F : 1960 Exam Date: 04/30/2025 11:15 Ordering Phys: Luis Mendez DO Technologist: Exam Location: [facility] Indication: hyatal hernia cp sob BP: 120 / 70 HR: 96 Rhythm: Sinus Technical Quality: Adequate MEASUREMENTS (Male / Female) Normal Values 2D ECHO LV Diastolic Diameter PLAX 3.7 cm 4.2 - 5.9 / 3.9 - 5.3 cm IVS Diastolic Thickness 1.0 cm 0.6 - 1.0 / 0.6 - 0.9 cm IVS Systolic Thickness 1.4 cm LVPW Diastolic Thickness 1.1 cm 0.6 - 1.0 / 0.6 - 0.9 cm LVPW Systolic Thickness 1.6 cm LVOT Diameter 2.4 cm LV Ejection Fraction 2D Teich 66.6 % LV Ejection Fraction MOD 4C 65.9 % LV Ejection Fraction MOD 2C 62.0 % LV Ejection Fraction 2C AL 62.9 % LA Diameter 3.4 cm RA Systolic Volume 4C AL 44.5 ml RA Systolic Volume 4C MOD 43.7 ml LA Sys Volume AL 56.1 cm cubed LA Sys Volume Index AL 26.9 cm cubed/m squared Aorta at Sinotubular Diameter 2.8 cm IVC Diameter 1.8 cm M-MODE LA Ao Ratio MM 1.4 AV Cusp Separation MM 2.0 cm DOPPLER MV Peak Velocity 95.0 cm/s MV Area PHT 2.8 cm squared Mitral E to A Ratio 1.3 TV Peak Velocity 239.5 cm/s TR Peak Velocity 277.0 cm/s TR Peak Gradient 30.7 mmHg TV Peak E Velocity 74.0 cm/s PV Peak Velocity 98.0 cm/s FINDINGS Left Ventricle Normal left ventricular size, systolic function and wall thickness, with no regional wall motion abnormalities. EF62%. Normal diastolic filling pattern. Right Ventricle The right ventricle is normal in size and function. Right Atrium The right atrium is normal in size. Left Atrium The left atrium is normal in size. Mitral Valve Structurally normal mitral valve without mitral regurgitation. Aortic Valve Structurally normal aortic valve without stenosis or regurgitation. Tricuspid Valve Structurally normal tricuspid valve with trace regurgitation. Pulmonary artery systolic pressure is normal. Pulmonic Valve Structurally normal pulmonic valve without stenosis or regurgitation. Pericardium Normal pericardium without effusion. Aorta Normal ascending aorta dimension. IVC The inferior vena cava appears normal. CONCLUSIONS 1. Normal LV size and function, EF 62% 2. No significant valvular abnormalities Kobi Trujillo MD, FACC (Electronically Signed) Final Date: 03 May 2025 20:20 S
== END 2025-04-30 11:00 | disposition home or self-care (01) ==
LOC: RAD 11:01
PROVIDERS: PCP Family Medicine; Visit Provider Family Medicine
DX: K44.9 Diaphragmatic hernia without obstruction or gangrene (principal); R94.31 Abnormal electrocardiogram [ECG] [EKG]; R07.89 Other chest pain
CPT/HCPCS: 93306

== ENCOUNTER 2025-05-02 05:00 | Outpatient (RCR) | payer MEDICARE, SELFPAY | END 2025-06-01 23:59 | disposition home or self-care (01) | LOC: SOT 05:00 | PROVIDERS: PCP Family Medicine; Visit Provider Orthopaedic Surgery | DX: S62.102D Fracture of unspecified carpal bone, left wrist, subsequent encounter for fracture with routine healing (principal); X58.XXXD Exposure to other specified factors, subsequent encounter | CPT/HCPCS: 97022; 97110; 97140 ==

== ENCOUNTER 2025-06-02 05:00 | Outpatient (RCR) | payer MEDICARE, SELFPAY | END 2025-07-01 23:59 | disposition home or self-care (01) | LOC: SOT 05:00 | PROVIDERS: PCP Family Medicine; Visit Provider Orthopaedic Surgery | DX: S62.92XD Unspecified fracture of left hand, subsequent encounter for fracture with routine healing (principal) | CPT/HCPCS: 97022; 97110 ==

== ENCOUNTER → 2025-08-05 11:18 | Outpatient (BNVA) | payer MEDICARE, SELFPAY | PROVIDERS: PCP Family Medicine; Visit Provider Family Medicine | DX: R31.29 Other microscopic hematuria (principal); N39.0 Urinary tract infection, site not specified; E03.9 Hypothyroidism, unspecified; M19.90 Unspecified osteoarthritis, unspecified site; R10.31 Right lower quadrant pain | CPT/HCPCS: 81000; 82785; 84443; 86001; 86003; 86140 ==

== ENCOUNTER → 2025-08-06 11:59 | Outpatient (BNVA) | payer MEDICARE, SELFPAY | PROVIDERS: PCP Family Medicine; Visit Provider Family Medicine | DX: R31.29 Other microscopic hematuria (principal); M19.90 Unspecified osteoarthritis, unspecified site; R10.31 Right lower quadrant pain | CPT/HCPCS: 81003; 85025; 85651 ==

== ENCOUNTER 2025-09-15 14:59 | Outpatient (CLI) | payer MEDICARE, SELFPAY ==
--- NOTE | 2025-09-15 15:15 | US_ITS ---
WS: [id number] RENAL ULTRASOUND HISTORY: hematuria COMPARISON: CT 11/21/2022 TECHNIQUE: 2-D and color Doppler imaging of the kidney submitted. Right kidney: 10.0 cm x 6.1 cm x 5.3 cm. Cortex: 1.0 cm Normal size kidney. Very mild cortical thinning. No solid or cystic mass. Left kidney: 12.1 cm x 4.9 cm x 5.9 cm. Cortex: 1.0 cm Normal size kidney. There is minimal thinning of the renal cortex. No obstruction. Hyperechoic nodule in the superior pole measures 1.1 x 0.9 x 1.2 cm. This may be a small angiomyolipoma. Fat-containing lesion was also noted on the CT from 11/21/2022. Aorta: Normal. Urinary Bladder: Minimally distended bladder. Mild wall thickening due to underdistention. US/US renal BI* [id number] IMPRESSION: 1. No renal obstruction. 2. LEFT renal angiomyolipoma, 1.2 cm. Minimal increase in size since the prior CT from 11/21/2022. 3. Mild cortical thinning RIGHT kidney.
[2025-09-15 16:13] LABS: Anion Gap 18.3 (5-19); Blood Urea Nitrogen 19 mg/dL (8-23); Calcium 8.9 mg/dL (8.5-10.5); Carbon Dioxide 23 mmol/L (22-29); Chloride 104 mmol/L (98-107); Glucose 100 mg/dL (65-115); Osmolality Calculated 294 mOsm/kg (285-295); Potassium 4.3 mmol/L (3.5-5.1); Sodium 141 mmol/L (136-145)
== END 2025-09-15 15:00 | disposition home or self-care (01) ==
PROVIDERS: PCP Family Medicine; Visit Provider Family Medicine
DX: R31.29 Other microscopic hematuria (principal); N28.9 Disorder of kidney and ureter, unspecified; D17.71 Benign lipomatous neoplasm of kidney
CPT/HCPCS: 36415; 76770; 80048